=== PATIENT | male | born 1950 | race Caucasian/White ===

== ENCOUNTER 2025-10-26 09:54 | Emergency (ER) | payer MEDICARE, BC, SELFPAY ==
--- OUTSIDE RECORDS SUMMARY | 2025-10-22 13:00 | XMS_ITS | Encounter Summary ---
Author Organization [facility] s [facility] Address [id number] [address] [place] [address] Care Team Providers Care Credit Intern Name Role Phone Lazaro Blank MD Primary Care Provider [phone] Reason for Visit * ReasonCommentsFollow-up3 month f/u right shoulder cortisone injection last injection done 07-18-25 Encounter Details DateTypeDepartmentCare Team (Latest Contact Info)Fluqhtsuxos71/15/2025 1:00 PM ESTOffice Visit [facility] [address] [facility] [address] [place] [address] Glen Turner Jr., MD [address], [facility] [address] [place] [address] Rotator cuff arthropathy of right shoulder (Primary Dx) Social History Tobacco UseTypesPacks/DayYears UsedDateSmoking Tobacco: NeverSmokeless Tobacco: NeverAlcohol UseStandard Drinks/WeekCommentsYes0 (1 standard drink = 0.6 oz pure alcohol)AUDIT-CAnswerDate RecordedQ1: How often do you have a drink containing alcohol?2-3 times a week10/22/2025Q2: How many drinks containing alcohol do you have on a typical day when you are drinking?1 or Q3: How often do you have six or more drinks on one occasion?Never10/22/2025Hunger ScreeningAnswer Date RecordedWithin the past 12 months we worried whether our food would run out before we got money to buy more.Never True10/22/2025Within the past 12 months the food we bought just didn't last and we didn't have money to get more.Never True10/22/2025Sex and Gender InformationValueDate RecordedSex Assigned at Not on fileLegal DpnFztr3906/30/2023 8:38 AM EDTGender IdentityNot on fileSexual OrientationNot on filedocumented as of this encounter Last Filed Vital Signs Vital SignReadingTime TakenCommentsBlood Pressure--Pulse--Temperature-- Respiratory Rate--Oxygen Saturation--Inhaled Oxygen Concentration--Sfcxmz888.7 kg (264 lb)10/22/2025 12:56 PM JDMNbediy248.9 cm (6' 0.01 )10/22/2025 12:56 PM ESTBody Mass Index35.8112/23/2024 12:56 PM ESTdocumented in this encounter Functional Status * HeightAnswerDate of LerlubhtncUimmyo77.1336110/22/2025 12:56 PM Francesca Nicholas CMA * WeightAnswerDate of SypjokpleoVqcldh885941/15/2025 12:56 PM Francesca Nicholas CMA * Food InsecurityQuestionAnswerDate of AssessmentAuthorWithin the past 12 months the food we bought just didn't last and we didn't have money to get more.Never True10/22/2025 12:58 PM Francesca Nicholas CMAWithin the past 12 months we worried whether our food would run out before we got money to buy more.Never True10/22/2025 12:58 PM Francesca Nicholas CMA * BEE (kcal)AnswerDate of NmfssqmsgmYjhudk055746/15/2025 12:56 PM Francesca Nicholas CMA * BSA (Calculated - sq m)AnswerDate of AssessmentAuthor2.4710/22/2025 12:56 PM Francesca Nicholas CMA * BMI (Calculated)AnswerDate of LadinymtytRbpupw76.8112/23/2024 12:56 PM Francesca Nicholas CMA * AUDIT-C ScoreAnswerDate of GqkfqhskfwTflhfn328/15/2025 12:59 PM Francesca Nicholas CMA * Alcohol UseQuestionAnswerDate of AssessmentAuthorQ1: How often do you have a drink containing alcohol?2-3 times a week10/22/2025 12:59 PM Francesca Nicholas CMAQ2: How many drinks containing alcohol do you have on a typical day when you are drinking?1 or 12:59 PM Francesca Nicholas CMAQ3: How often do you have six or more drinks on one occasion?Never10/22/2025 12:59 PM Francesca Nicholas CMA * Weight in (lb) to have BMI = 25AnswerDate of MnjrulqggxSmztmd13469/15/2025 12:56 PM Francesca Nicholas CMA * HeightAnswerDate of RwjljlosbeHkizws92.3177610/22/2025 12:56 PM Francesca Nicholas CMA * WeightAnswerDate of ZxyakytprjYmtiuk177134/15/2025 12:56 PM Francesca Nicholas CMA * BEE (kcal)AnswerDate of ZckojwrlsvGomojs993577/15/2025 12:56 PM Francesca Nicholas CMA * BSA (Calculated - sq m)AnswerDate of AssessmentAuthor2.4710/22/2025 12:56 PM Francesca Nicholas CMA * BMI (Calculated)AnswerDate of QpfaoeyfsrKdejif52.8112/23/2024 12:56 PM Francesca Nicholas CMA * Weight in (lb) to have BMI = 25AnswerDate of IdspfxjnosZqbuul67727/15/2025 12:56 PM Francesca Nicholas CMA documented as of this encounter Progress Notes * Glen Turner Jr., MD - 10/22/2025 1:00 PM ESTAssociated Order(s): $ Large Joint Injection: shoulder, R subacromial bursa Post-Procedure Diagnose(s): Rotator cuff arthropathy of right shoulder [facility] [address] [address] Name: Robert Morales : 1950 Chief Complaint Patient presents with Right Shoulder - Follow-up 3 month f/u right shoulder cortisone injection last injection done 07-18-25 Robert Morales is a 75 y.o. year old male who presents to the office today for three-month evaluationof right shoulder. Patient has known rotator cuff arthropathy of the right shoulder. He has done well with intermittent injections. His most recent injection was given on 07/18/2025; he reports he had relief for about 2-1/2 months. Patient is interested in repeating another corticosteroid injectionof his right shoulder. He reports he continues to have relief from his previous injection of his right knee. Right shoulder: Patient has had longstanding pain of his right shoulder for the last few years. He reports pain mainly over the lateral aspect of the shoulder with occasional clicking and popping. Denies numbness or tingling. His symptoms worsened with overhead movement and sleeping on his side at night. He does have difficulties putting on a jacket or shirts. He denies any recent falls or injuries to his shoulder since last being seen. Treatment course thus far has included activity modification, RICE, icy hot, Tylenol, physician directed home exercises, glenohumeral and subacromial corticosteroid injections COMORBIDITIES that can adversely influence patient's outcome: Body mass index is 35.8 kg/m??. Tobacco Use: Low Risk (10/22/2025) Patient History Smoking Tobacco Use: Never Smokeless Tobacco Use: Never Passive Exposure: Not on file Recent Concern: Tobacco Use - Medium Risk (09/17/2025) Received from [facility] Patient History Smoking Tobacco Use: Former Smokeless Tobacco Use: Never Passive Exposure: Not on file No results found for: HGBA1C No results found for: EGFR Additional ROS as reviewed below: Constitutional: Negative for chills, diaphoresis and fever. Respiratory: Negative for shortness of breath. Cardiovascular: Negative for chest pain. Neurological: Negative for speech difficulty Psychiatric/Behavioral: Negative for agitation, behavioral problems and confusion. Previous office notes and diagnostic studies were reviewed prior to and during encounter. Past Medical, Family, Surgical, and Social History, as well as Medications, Allergies, and Review of Systems were reviewed and can be seen in the patient's chart. Objective Vitals: 10/22/25 1256 Weight: 119.7 kg (264 lb) Height: 182.9 cm (6' 0.01 ) Body mass index is 35.8 kg/m??. Robert is alert and oriented, and in no acute distress. Mood and affect are normal. No apparent issues with cervical ROM. No tenderness to palpation of midline of cervical spine. Right SHOULDER APPEARANCE: Skin is intact. No erythema, edema, ecchymosis, or deformity noted ATROPHY: None CREPITUS: Positive BICEPS DEFORMITY: None TENDERNESS: Subacromial bursa, infraspinatus, supraspinatus ROM: AROM (Right) Forward flexion 160 with pain AB 90 with pain ER with the arm at the side 50 IR lumbar spine Painful Arc (pain 60-120 degrees ABD): Positive STRENGTH: 4/5 supraspinatus. 5/5 external rotation. 5/5 subscapularis. The deltoid actively contracts. Speciality tests: Fraire: Positive Neers sign: Positive Jacqueline's: Positive Belly Press: Negative Drop Arm: Negative Cross-body adduction: Negative Yamhill's: Positive Speed: Positive Motor & sensation function intact in the axillary, median, ulnar, and radial nerve distributions. 2+ radial pulse Imaging X-ray shoulder right minimum 2 views Multiple views of the right shoulder show proximal migration of the humeral head with narrowing of the supraspinatus outlet no significant arthritic changes noted at the glenohumeral joint Assessment 1. Rotator cuff arthropathy of right shoulder - $ Large Joint Injection: shoulder, R subacromial bursa Plan: I examined and treated Robert Morales at this appointment today for rotator cuff arthropathy ofthe right shoulder. Physical exam findings were reviewed with patient. We discussed these issues along with possible treatment options. Conservative and surgical treatment options were discussed. Definitive treatment would be a reverse total shoulder arthroplasty however patient would like to continue with conservative treatment at this time. He has done well with corticosteroid injections in thepast and would like to proceed with another subacromial corticosteroid injection of the right shoulder. Patient was educated on injections including benefits, risks, side effects, and activity modification afterwards. Injection was given today without complication. Patient was encouraged to continue OTC analgesics and ice as needed. Continue with home exercises. Follow up in 3 months I encouraged Robert Morales to contact the office with any questions or concerns that arise at which point we could update the plan if necessary. Patient was told to notify the office if they develop any worsening or concerning symptoms. All questions were answered and patient verbalized understanding and is agreeable with the plan. This note was created with the assistance of a speech recognition program with the goal of generating a timely record of the patient encounter. Inadvertent computerized barrel raiser helper errors related to syntax, spelling, homophones, and/or inaudibility may be present. $ Large Joint Injection: shoulder, R subacromial bursa on 10/22/2025 1:03 PM Indications: pain Details: 22 G needle, posterior approach Medications: 80 mg methylPREDNISolone acetate 80 mg/mL; 20 mg lidocaine 10 mg/mL (1 %) Outcome: tolerated well, no immediate complications The patient was instructed to use ice, NSAIDs, or Tylenol for pain as needed. Patient was also educated on possibility for blood glucose elevation following the injection. The patient will call with any signs or concerns. Procedure, treatment alternatives, risks and benefits explained, specific risks discussed. Consent was given by the patient. Patient was prepped and draped in the usual sterile fashion. I, Glen Turner Jr, MD, personally performed the face to face evaluation on this patient. Idiscussed with the patient and confirmed the accuracy and completeness of the aforementioned history prepared by the advance practice provider, and I personally performed the clinical examination of the patient. I discussed the treatment plan with the patient and my physician's assistant project engineer. Details of today's visit are as described above. documented in this encounter Plan of Treatment DateTypeDepartmentCare Team (Latest Contact Info)Mpzvprjglgq29/16/2026 2:40 PM EDTOffice Visit [facility] [address] [place] [address] Glen Turner Jr., MD [address] [place] [address] documented as of this encounter Procedures Procedure NamePriorityDate/TimeAssociated DiagnosisCommentsPR ARTHROCENTESIS ASPIR&/INJ MAJOR JT/BURSA W/O TLEzfbilh81/15/2025 1:03 PM EST Rotator cuff arthropathy of right shoulder documented in this encounter Results * TN ARTHROCENTESIS ASPIR&/INJ MAJOR JT/BURSA W/O US (10/22/2025 1:03 PM EST) Narrative MANUALLY TRANSCRIBED RESULTS - 10/22/2025 1:03 PM EST Glen Turner Jr., MD 10/22/2025 1:38 PM $ Large Joint Injection: shoulder, R subacromial bursa on 10/22/2025 1:03 PM Indications: pain Details: 22 G needle, posterior approach Medications: 80 mg methylPREDNISolone acetate 80 mg/mL; 20 mg lidocaine 10 mg/mL (1 %) Outcome: tolerated well, no immediate complications The patient was instructed to use ice, NSAIDs, or Tylenol for pain as needed. Patient was also educated on possibility for blood glucose elevation following the injection. The patient will call with any signs or concerns. Procedure, treatment alternatives, risks and benefits explained, specific risks discussed. Consent was given by the patient. Patient was prepped and draped in the usual sterile fashion. I, Glen Turner Jr, MD, personally performed the face to face evaluation on this patient. I discussed with the patient and confirmed the accuracy and completeness of the aforementioned history prepared by the advance practice provider, and I personally performed the clinical examination of the patient. I discussed the treatment plan with the patient and my physician's assistant project engineer. ??Details of today's visit are as described above. Authorizing ProviderResult TypeResult StatusBenlisbeth Turner Jr., MD PROCEDURE/MINOR SURGICAL ORDERABLESFinal ResultPerforming OrganizationAddress City/State/ZIP CodePhone Number MANUALLY TRANSCRIBED RESULTS documented in this encounter Visit Diagnoses Diagnosis Rotator cuff arthropathy of right shoulder- Primary documented in this encounter Administered Medications Medication OrderMAR ActionAction DateDoseRateSite lidocaine (XYLOCAINE) 10 mg/mL (1 %) injection 20 mg 20 mg, intra-articular, One-Time Injection, Starting on Wed10/22/25 at 1303, For 1 dose Indications:Rotator cuff arthropathy of right sbxpneiiVfzjb76/15/2025 1:03 PM EST20 mg methylPREDNISolone acetate (DEPO-MEDROL) injection 80 mg 80 mg, intra-articular, One-Time Injection, Starting on Wed10/22/25 at 1303, For 1 dose Indications:Rotator cuff arthropathy of right tnzulxydBhxbr15/15/2025 1:03 PM EST80 mgdocumented in this encounter Care Teams Team MemberRelationshipSpecialtyStart DateEnd Date Lazaro Blank MD [address] [place] [address] PCP - GeneralFamily Medicine07/02/23documented as of this encounter
[2025-10-26 10:00] VITALS: O2SAT 79
[2025-10-26 10:04] VITALS: O2SAT 71
[2025-10-26 10:15] VITALS: O2SAT 91
[2025-10-26 10:42] VITALS: O2SAT 90
--- NOTE | 2025-10-26 11:44 | ED_ITS ---
HPI HPI - General Adult General Stated complaint: CARDIAC ARREST Time Seen by Provider: 10/26/25 11:11 History of Present Illness HPI narrative: The patient is a 75-year-old male with history of hypertension hyperlipidemia and BPH is brought to us by the EMS after his saw that she heard something fall on the floor and she found him in the floor the patient was awake when the EMS arrived there but he was restless. It was when he got to the EMS when he ar rested and the patient was started on CPR by the EMS where they gave him 3 rounds of epinephrine before his arrival. By the time the patient arrived with started CPR right away CPR continued in the PEA pulse with every 2 minutes we will check for the pulse and the patient will be given epinephrine every 3 to 5 minutes Patient also was provided with multiple rounds of bicarb Exam Narrative Exam Narrative: No signs of trauma The patient is intubated No bruises in the abdomen or the lower extremities or the upper extremity with the head There is good air entry with the intubation bilaterally Constitutional Vital Signs, click to edit/add: Last Vital Signs Resp 14 10/26/25 10:42 Pulse Ox 90 L 10/26/25 10:42 FiO2 100 10/26/25 10:42 Course Vital Signs Vital signs: Vital Signs Respiratory Rate 14 10/26/25 10:00 Pulse Oximetry 79 L 10/26/25 10:00 Fraction of Inspired Oxygen 100 10/26/25 10:00 Respiratory Rate 14 10/26/25 10:42 Pulse Oximetry 90 L 10/26/25 10:42 Fraction of Inspired Oxygen 100 10/26/25 10:42 Medical Decision Making [facility] Narrative Medical decision making narrative: Upon arrival initially the patient had the CPR continued we continued CPR for few rounds during which the patient is getting epinephrine every 3 to 5 minutes and every 2 minutes. For the pulse check, the patient was intubated on arrival It was at 1011 when the patient was found to have a pulse and he started fighting the tube, we did give him at that time fentanyl and Versed as well, and at that time the plan to start him on Levophed which we started because the blood pressure was low EKG at that time showed that the patient was in A-fib with a picture of possible ST elevation that was discussed with Dr. Mitchell on the phone, but according to Dr. Mitchell this could have been PE as well After discussion with the family at the bedside and at 10:04 It is at 1011 the patient arrested again At that time the patient was given TNKase after discussing the case with his family and explained that right now with his care is futile and thus we try to help if there is any PE causing him to be hypotensive and a resting Patient was given TNKase according to the pharmacy recommended dose CPR continues during that time Multiple episode of CPR and multiple episodes of bicarb blood sugar was above 112 The patient at 1056 was pronounced I did speak with the primary care doctor BJ and his phone number was [phone] And I also spoke with the silk washing machine operator and she cleared the body and if not a silk washing machine operator case as long of the life will decide on the home Discharge Plan Discharge Patient Disposition: Date/Time: 10/26/25 10:56 Probable Cause of Probable Cause of : Cardiac arrest
--- NOTE | 2025-10-26 11:53 | PC.NURSE ---
see code blue paperwork
--- NOTE | 2025-10-26 12:08 | PC.NURSE ---
magnetic tape typewriter operator spoke with [facility] [place]
--- OUTSIDE RECORDS SUMMARY | 2025-10-26 12:23 | XMS_ITS | Clinical Summary ---
Author Organization [facility] Address [address] [place] [address] Care Team Providers Care Legal Stenographer Name Role Phone Lazaro Blank MD Primary Care Provider [phone] Lazaro Blank MD Unavailable Roxi Rosario LPN Unavailable Allergies No known active allergies Medications MedicationSigDispense QuantityRefillsLast FilledStart DateEnd DateStatus senna-docusate (Vee-Colace) 8.6-50 MG tablet Take 1 tablet by mouth in the morning.Active tamsulosin (Flomax) 0.4 MG 24 hr capsule Take 0.4 mg by mouth in the morning. 2 capsules at bedtime.Active Naproxen Sodium (Aleve) 220 MG capsule Take 1 tablet by mouth every 12 (twelve) hours if needed.Active glucose blood (GNP [place]etrack Test Strips) test strip 1 each by Other route if needed. Use as instructedActive atorvastatin (Lipitor) 20 MG tablet Take 20 mg by mouth in the morning. 1/2 tablet daily.Active BABY ASPIRIN PO Take by mouth. dailyActive allopurinol (Zyloprim) 300 MG tablet Take 300 mg by mouth in the morning.Active diphenhydrAMINE (Benadryl Allergy) 25 MG tablet Take 1 tablet by mouth every 8 (eight) hours if needed for allergies or sleep. Active albuterol HFA (ProAir HFA) 90 mcg/act inhaler Indications:Moderate persistent asthma without status asthmaticus without complication (HCC)Inhale 2 puffs every 4 (four) hours if needed for wheezing 18 g 1112/19/2023Active lisinopril 20 MG tablet Indications:Essential (primary) hypertensionTake 1 tablet (20 mg) by mouth Daily 100 tablet 5Active semaglutide (Ozempic) 4 MG/3ML solution pen-injector Indications:Type 2 diabetes mellitus with diabetic polyneuropathy, without long- term current use of insulin (HCC)Inject 1 mg under the skin 1 (one) time per week 12 mL 5Active cetirizine (ZyrTEC) 10 MG tablet Take 10 mg by mouth at bedtimeActive furosemide (Lasix) 20 MG tablet Indications:Essential (primary) hypertensionTAKE 1 TABLET BY MOUTH DAILY 90 tablet 5Active Active Problems ProblemNoted DateDiagnosed DatePhysical kebtdnhpxxkddz84/14/2025ody mass index (BMI) 36.0-36.9, adult02/19/2025 Assessment & Plan (02/19/2025 2:56 PM EDT): 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) use of xzrbzuq1302/19/2025Routine general medical examination at health care cwhvoqpx14/14/2025 Assessment & Plan (02/19/2025 2:54 PM EDT): Colonoscopy every 10 years or Cologuard every 3 years ages 50-75 Flu Vaccine yearly Pneumovax and Prevnar Mammo yearly for women and PSA yearly for men Labs/Screening yearly to rule out Diabetes, Chronic Kidney disease and liver disease Hepatitis Screen forat risk populations Shingles vaccine after65 if indicated Tetanus Vaccine every 10 years Lipids yearly under the age of 75 If Smoking history: one time CT scan of chest and Ultrasound of Aorta to screen for Anuerysm Neurogenic jkcgmzmoccys64/14/2025 Assessment & Plan (02/19/2025 2:59 PM EDT): stretching Type 2 diabetes mellitus with diabetic neuropathy, azfmsxdwwyy18/07/2025 Assessment & Plan (03/22/2025 2:58 PM EDT): No Tobacco use Follow ADA 1800 diet low carbohydrate Continue Med Compliance Goal LDL less than 100Goal BP 130/80 Goal HgbA1c < 7.0% Monitor Feet, monitor for infection Needs Exercise Yearly eye exams Prior to your visit today we reviewed your chart and outlined testing and treatment needed foryour care. Reviewed poissble complications of diabetes including, loss of vision, kidney failure and increased risk of heart attacks and stroke. We made recommendations on how to control your blood sugars, and minimize your risk of these complications. We discussed your current barriers to a healthy living and importance of healthy diet and exercise. Assessment & Plan (02/19/2025 2:53 PM EDT): Check more frequently Exposure to potentially hazardous vnzxpeyep68/07/2025Ingrowing uonlqen9502/12/2025 Lower urinary tract symptoms due to benign prostatic aaksjqgkzck20/07/2025 Onychomycosis of akubivc2602/12/2025Type 2 diabetes mellitus with diabetic pbmmgmazkcdpfh65/07/2025 Assessment & Plan (05/17/2025 1:23 PM EDT): No Tobacco use Follow ADA 1800 diet low carbohydrate Continue Med Compliance Goal LDL less than 100Goal BP 130/80 Goal HgbA1c < 7.0% Monitor Feet, monitor for infection Needs Exercise Yearly eye exams Prior to your visit today we reviewed your chart and outlined testing and treatment needed foryour care. Reviewed poissble complications of diabetes including, loss of vision, kidney failure and increased risk of heart attacks and stroke. We made recommendations on how to control your blood sugars, and minimize your risk of these complications. We discussed your current barriers to a healthy living and importance of healthy diet and exercise. Assessment & Plan (02/19/2025 2:53 PM EDT): No Tobacco use Follow ADA 1800 diet low carbohydrate Continue Med Compliance Goal LDL less than 100Goal BP 130/80 Goal HgbA1c < 7.0% Monitor Feet, monitor for infection Needs Exercise Yearly eye exams Prior to your visit today we reviewed your chart and outlined testing and treatment needed foryour care. Reviewed poissble complications of diabetes including, loss of vision, kidney failure and increased risk of heart attacks and stroke. We made recommendations on how to control your blood sugars, and minimize your risk of these complications. We discussed your current barriers to a healthy living and importance of healthy diet and exercise. Asthma without status vhrnjnorukp83/13/2023Essential (primary) hypertension 04/20/2023PH (benign prostatic hyperplasia)04/20/2023hronic gafzied5204/20/2023 Class 2 bvlbraq5304/20/2023eneralized osteoarthritis of multiple sites04/20/2023 Fuslurolbhvnqpkulvpi27/13/2023Lichen gztxhs0304/20/2023Morbid (severe) obesity due to excess eurctyio21/13/2023 Assessment & Plan (02/19/2025 2:53 PM EDT): Weight loss Obstructive sleep apnea04/20/20235666Bwrrfmgyy02/13/2023Type 2 diabetes mellitus without bbafpfdasrdka65/13/2023 Assessment & Plan (09/17/2025 1:22 PM EST): No Tobacco use Follow ADA 1800 diet low carbohydrate Continue Med Compliance Goal LDL less than 100Goal BP 130/80 Goal HgbA1c < 7.0% Monitor Feet, monitor for infection Needs Exercise Yearly eye exams Prior to your visit today we reviewed your chart and outlined testing and treatment needed foryour care. Reviewed poissble complications of diabetes including, loss of vision, kidney failure and increased risk of heart attacks and stroke. We made recommendations on how to control your blood sugars, and minimize your risk of these complications. We discussed your current barriers to a healthy living and importance of healthy diet and exercise. Sees Podiatry this week Optometry next Wednesday Decreased estrogen level08/22/2018Lipoprotein deficiency aclxrefi34/05/2016 Allergic wevxhqdc96/22/2016 Resolved Problems ProblemNoted DateDiagnosed DateResolved CeizRtnh48/Low HDL (under 40)ure fbzvfixbdyazdudeibpc89/13/202306/14/2023 Encounters DateTypeDepartmentCare HevoNjxwtgofiau41/10/2025 1:00 PM ESTOffice Visit [facility] [address] [place] [address] Lazaro Blank MD Type 2 diabetes mellitus without complication, with long-term current use of insulin (HCC) (PrimaryDx)09/17/20250109Lsluuz04/09/7856Geuykx67/03/2025Telephone [facility] [address] [place] [address] Roxi Rosario LPN 08/28/2025Patient Outreach [facility] [address] [place] [address] Roxi Rosario LPN 08/20/2025Refill [facility] [address] [facility] [address] [place] [address] Lazaro Blank MD Essential (primary) hypertensionfrom Last 3 Months Immunizations ImmunizationAdministration DatesNext DueInfluenza, High Dose Seasonal, Preservative Free08/06/2020,08/22/2019,09/15/2017Influenza, High-dose Seasonal, Quadrivalent, Preservative Free08/10/2022,08/08/2018Influenza, Seasonal, Quadrivalent, Pixxlnhudg53/30/2021Influenza, injectable, quadrivalent, preservative free08/25/2016,09/17/2015Influenza, seasonal, gwkyorwmwq34/26/2023 Influenza, seasonal, injectable, preservative free07/31/2013Influenza, seasonal, intradermal, preservative free08/08/2015Pfizer Bivalent Booster 12 Years And Older09/03/2022neumococcal Conjugate PCV 13003/02/2017Pneumococcal Polysaccharide YPLC114111/14/2018Zoster, live01/07/2016,12/10/2015,08/08/2015 Family History Medical HistoryRelationNameCommentsHeart diseaseFatherJoseph BashHypertension FatherJoseph BashStrokeMotherGladys BashMelanomaNeg HxRelationNameStatusComments FatherJoseph BashDeceasedMotherGladys BashDeceased Social History Tobacco UseTypesPacks/DayYears UsedDateSmoking Tobacco: UezldfAlqrbkpahg34 Smokeless Tobacco: Never Tobacco Cessation:Counseling Given: Not Answered Alcohol UseStandard Drinks/WeekCommentsYes3 (1 standard drink = 0.6 oz pure alcohol)Social aicfxprS5594 Health LiteracyAnswerDate RecordedHow often do you need to have someone help you when you read instructions, pamphlets, or other written material from your doctor or pharmacy?Psoifgslr54/09/2025Social Connection and Isolation PanelAnswerDate RecordedIn a typical week, how many times do you talk on the phone with family, friends, or neighbors?Twice a week 02/14/2025How often do you get together with friends or relatives?Three times a week02/14/2025ttends Nondenominational ServicesNot on file02/14/2025Do you belong to any clubs or organizations such as yazidism groups, unions, fraternal or athletic groups, or school groups?Yes02/14/2025How often do you attend meetings of the clubs or organizations you belong to?Never02/14/2025re you , , , , never , or living with a partner?Hjbofsi1602/14/2025 AUDIT-CAnswerDate RecordedQ1: How often do you have a drink containing alcohol? 2-3 times a week02/14/2025Q2: How many drinks containing alcohol do you have on a typical day when you are drinking?1 or Q3: How often do you have six or more drinks on one occasion?Never02/14/2025Overall Financial Resource Strain (CARDIA)AnswerDate RecordedHow hard is it for you to pay for the very basics like food, housing, medical care, and heating?Not hard at all02/14/2025 PHQ-2AnswerDate RecordedPatient Health Questionnaire-2 Nnvgo83111/17/2024[facility] [place] - Occupational Stress QuestionnaireAnswerDate RecordedDo you feel stress - tense, restless, nervous, or anxious, or unable to sleep at night because yourmind is troubled all the time - these days?Not at all 02/14/2025Exercise Vital SignAnswerDate RecordedOn average, how many days per week do you engage in moderate to strenuous exercise (like a brisk walk)?0 days 02/14/2025Minutes of Exercise per SessionNot on file02/14/2025Hunger Vital Sign AnswerDate RecordedWithin the past 12 months, you worried that your food would run out before you got the money to buymore.Never true02/14/2025Within the past 12 months, the food you bought just didn't last and you didn't have money to get more.Never true02/14/2025PRAPARE - TransportationAnswerDate RecordedIn the past 12 months, has lack of transportation kept you from medical appointments or from getting medications?No02/14/2025In the past 12 months, has lack of transportation kept you from meetings, work, or from getting things needed for daily living?No02/14/2025Housing Stability Vital SignAnswerDate RecordedIn the last 12 months, was there a time when you were not able to pay the mortgage or rent on time?No02/14/2025In the past 12 months, how many times have you moved where you were living?t any time in the past 12 months, were you homeless or living in a fdc (including now)?No02/14/2025Sex and Gender InformationValueDate RecordedSex Assigned at BirthNot on fileLegal SexMale 01/20/2023 6:54 PM EDTGender IdentityNot on fileSexual OrientationNot on file Last Filed Vital Signs Vital SignReadingTime TakenCommentsBlood Cimhtyyq855/6211 1:07 PM EST Raubv226609/17/2025 1:07 PM YYVUneqwkdzmrl46.2 ??C (98.9 ??F)10/26/2023 8:28 AM ESTRespiratory Pjkj423304/21/2023 9:01 AM EDTOxygen Hboogxbxqy57%09/17/2025 1:07 PM ESTInhaled Oxygen Concentration--Stzrky545 kg (259 lb)09/17/2025 1:07 PM EST Wlqczo979.9 cm (6')09/17/2025 1:07 PM ESTBody Mass Index35.13111/17/2024 1:07 PM EST Plan of Treatment Health MaintenanceDue DateLast DoneCommentsDiabetes: Retinopathy Screening , 03/21/2019COVID-19 Vaccine ( season)2025 09/03/2022, 05/26/2022, 09/09/2021, Additional history existsDiabetes: Hemoglobin A1C/08/2025, 02/14/2025, 10/26/2023, Additional history existsDiabetes: Urine Protein Hyfyockek91/15/04109305/22/2025, 04/20/2022, 04/09/2021, Additional history existsPneumococcal Vaccine: 65+ YearsCompleted 09/14/2019, 03/02/20171287TafxrszevbtIiblswkqqxsq44/24/2023, 07/01/2023, 07/01/2023, Additional history existsColorectal Cancer ScreeningDiscontinuedInfluenza PqlbsvuMcxpspwuu25/13/2025, 08/03/2023, 08/10/2022, Additional history existsCT ColonographyDiscontinuedFIT-DNADiscontinuedFITDiscontinuedFOBTDiscontinued SigmoidoscopyDiscontinued Procedures Procedure NamePriorityDate/TimeAssociated DiagnosisCommentsPOCT GLYCATED HEMOGLOBIN, MSVSTOsxuqpw49/10/2025 1:23 PM EDT Type 2 diabetes mellitus with diabetic polyneuropathy, without long-term current use of insulin (HCC) COLONOSCOPY XWNVVXHFYHJfikpoa95/24/2023 COLOR FUNDUS PHOTOGRAPHY - OU - BOTH VXANRuqpybo87/23/2022 12:00 PM EST MICROALBUMIN / CREATININE URINE BBINHIlrcgth12/13/2022 from Last 3 Months or Most Recently Relevant to Health Maintenance Results * POCT Glycated hemoglobin, total (05/17/2025 1:23 PM EDT)ComponentValueRef RangeTest MethodAnalysis TimePerformed AtPathologist SignatureHemoglobin A1C 6.1Specimen (Source)Anatomical Location / LateralityCollection Method / Volume Collection TimeReceived KhwxCmomt76/10/2025 1:23 PM EDT Narrative Authorizing ProviderResult TypeResult StatusLazaro Blank MDPOINT OF CARE TEST ENTER/EDIT ORDERABLESFinal Result * COLONOSCOPY DIAGNOSTIC (07/01/2023)Anatomical RegionLateralityModality Radiographic ImagingSpecimen (Source)Anatomical Location / Laterality Collection Method / VolumeCollection TimeReceived Time07/01/2023 Narrative 07/01/2023 11:55 AM EDT normal Authorizing ProviderResult TypeResult StatusLazaro WRIGHTG XR PROCEDURES Edited Result - Final * Color Fundus Photography - OU - Both Eyes (09/30/2022 12:00 PM EST)Anatomical RegionLateralityModalityHeadFundus PhotographySpecimen (Source)Anatomical Location / LateralityCollection Method / VolumeCollection TimeReceived Time 09/30/2022 12:00 PM EST Narrative 09/30/2022 12:00 PM EST PERFORMED AT [facility] LOCATION:[id number] No diabetic retinopathy Procedure Note CONVERSION, GENERIC - 03/24/2023 PERFORMED AT [facility] LOCATION:[id number] No diabetic retinopathy Authorizing ProviderResult TypeResult StatusLazaro Blank MDOPHTH PHOTOGRAPHY Final Result * (ABNORMAL) Microalbumin / creatinine urine ratio (04/20/2022)ComponentValueRef RangeTest MethodAnalysis TimePerformed AtPathologist LrauuqyiuRSAGF41529 - 259 [facility] LABMALB<1.2(L)[facility] EXTER[facility] LABComment: Unable to calculate mALB/Crea ratio, mALB is <1.2 mg/dL mALB reference range not established. Specimen (Source)Anatomical Location / LateralityCollection Method / Volume Collection TimeReceived Time04/20/2022 Narrative Authorizing ProviderResult TypeResult Ирина BAUMANN URINE ORDERABLES Final ResultPerforming OrganizationAddressCity/State/ZIP CodePhone Number [facility] from Last 3 Months or Most Recently Relevant to Health Maintenance Insurance Care Teams Team MemberRelationshipSpecialtyStart DateEnd Lazaro Blank MD [address] [place] [address] PCP - GeneralFamily Medicine04/06/23 Lazaro Blank MD [address] [facility] [address] [place] [address] PCP - ACO [facility]03/08/24 Roxi Rosario LPN [address] [facility] [address] [place] [address] 06/13/25
--- OUTSIDE RECORDS SUMMARY | 2025-10-26 12:24 | XMS_ITS | Patient Health Record ---
Author Organization [facility] in [place] Address [address] [place] [address] Care Team Providers Care [place] Attorney Name Role Phone Lazaro Blank MD Primary Care Provider Unavailabl e Reason For Referral No Information Medications Medication SIG (Take, Route, Frequency, Duration) Notes Start Date End Date Status Atorvastatin Calcium ActiveAspirinActiveDiphendrylActiveCephalexinActiveAllopurinolActiveAlogliptin BenzoateActiveTamsulosin HClActivehydroCHLOROthiazideActive Social History Tobacco Use: Social History Observation Description Date Details (start date - stop date) Former Smoker NA - NA Tobacco Use/Smoking Question Answer Notes Patient is a former smoker Plan Of Treatment No Information Insurance Providers Payer Name Payer Address Payer Phone Subscriber Number Group Number Insured Name Patient Relationship to Insured Coverage Start Date Coverage End Date [place]IC[place] [address] [place] [address] [id number] Yasmine Moraleself - patient is the [id number] MEDICARE SUPPLEMENTPO [address] [place] [id number], Kenneth Self - patient is the [id number] 2016 Medications Administered Medication Instructions Date of Administration Dosage Notes Depo-Medrol, 40 mg/mL mLDepo-Medrol, 40 mg/mL mLDepo-Medrol, 40 mg/mL12/06/2019 2 mLDepo-Medrol, 40 mg/mL mLDepo-Medrol, 40 mg/mL mL Medical (General) History Surgical History Surgery Date(Month/Year)
--- OUTSIDE RECORDS SUMMARY | 2025-10-26 12:24 | XMS_ITS | Encounter Summary ---
Author Organization [facility] s tem Address [id number] [address] [place] [address] Care Team Providers Care Greens Keeper Name Role Phone Lazaro Blank MD Primary Care Provider [phone] Encounter Details DateTypeDepartmentCare Team (Latest Contact Info)Irnsyffvuuy06/15/2025Travel Social History Tobacco UseTypesPacks/DayYears UsedDateSmoking Tobacco: NeverSmokeless [...] InformationValueDate RecordedSex Assigned at Not on fileLegal MlzRnai7806/30/2023 8:38 AM EDTGender IdentityNot on fileSexual OrientationNot on filedocumented as of this encounter Plan of Treatment DateTypeDepartmentCare Team (Latest Contact Info)Yoilrfwzvhu35/16/2026 2:40 PM EDTOffice Visit [facility] [address] [facility] [address] [place] [address] Glen Turner Jr., MD [address] [facility] , [facility] [address] [place] [address] documented as of this encounter Visit Diagnoses Not on filedocumented in this encounter Care Teams Team MemberRelationshipSpecialtyStart DateEnd Date Lazaro Blank MD [address] [place] [address] PCP - GeneralFamily Medicine07/02/23documented as of this encounter
--- OUTSIDE RECORDS SUMMARY | 2025-10-26 12:24 | XMS_ITS | Clinical Summary ---
Author Organization [facility] Address [id number] [address] [place] [address] Care Team Providers Care Commissioned Security Officer Name Role Phone Lazaro Blank MD Primary Care Provider [phone] Allergies No known active allergies Medications MedicationSigDispense QuantityRefillsLast FilledStart DateEnd DateStatus ALLOPURINOL ORAL Take 300 mg by mouth Daily at 0630.Active alogliptin benzoate (ALOGLIPTIN ORAL) Take by mouth.Active ASPIRIN ORAL Take by mouth.Active atorvastatin calcium (ATORVASTATIN ORAL) Take 20 mg by mouth Daily at 0630.Active diphenhydramine HCl (BENADRYL ORAL) Take by mouth.Active HYDROCHLOROTHIAZIDE ORAL Take by mouth.Active tamsulosin HCl (TAMSULOSIN ORAL) Take by mouth.Active methylPREDNISolone (MEDROL, LEIGHA,) 4 mg tablet follow package directions 21 tablet 3Active Additional Information Patient not taking.Reported on 10/22/2025 semaglutide 0.25 mg or 0.5 mg(2 mg/1.5 mL) pen injector Inject 0.25 mg under the skin.5Active CEPHalexin (KEFLEX) 500 mg capsule Take 1 capsule (500 mg total) by mouth as needed.Active cetirizine (ZyrTEC) 10 mg tablet Take 1 tablet (10 mg total) by mouth once daily at bedtime. TAKE 10 MG BY MOUTH AT BEDTIMEActive furosemide (LASIX) 20 mg tablet Take 1 tablet (20 mg total) by mouth daily.5Active Active Problems No known active problems Encounters DateTypeDepartmentCare BxheSqqiokvajfa30/15/2025 1:00 PM ESTOffice Visit [facility] [address] [place] [address] Glen Turner Jr., MD Rotator cuff arthropathy of right shoulder (Primary Dx)10/22/2025Travelfrom Last 3 Months Family History Medical HistoryRelationNameCommentsHeart diseaseFatherHeart diseaseMother RelationNameStatusCommentsFatherDeceasedMotherDeceased Social History Tobacco UseTypesPacks/DayYears UsedDateSmoking Tobacco: NeverSmokeless Tobacco: Never Tobacco Cessation:Counseling Given: Not Answered Alcohol UseStandard Drinks/WeekCommentsYes0 (1 standard drink = 0.6 [...] InformationValueDate RecordedSex Assigned at Not on fileLegal YwtYuwj2806/30/2023 8:38 AM EDTGender IdentityNot on fileSexual OrientationNot on file Last Filed Vital Signs Vital SignReadingTime TakenCommentsBlood Pressure--Pulse--Temperature-- Respiratory Rate--Oxygen Saturation--Inhaled Oxygen Concentration--Ioezuu430.7 kg (264 lb)10/22/2025 12:56 PM FZGGruljb814.9 cm (6' 0.01 )10/22/2025 12:56 PM ESTBody Mass Index35.8112/23/2024 12:56 PM EST Plan of Treatment DateTypeDepartmentCare Team (Latest Contact Info)Toahcahqtxf02/16/2026 2:40 PM EDTOffice Visit [facility] [address] [facility] [address] [place] [address] Glen Turner Jr., MD [address] [facility] [address] [place] [address] Health MaintenanceDue DateLast DoneCommentsDepression Drkhzqviv31/16/1963Adult BMI Follow Up Plan1969Fall Risk Szuheitod34/16/2016COVID-19 Vaccine ( season), 05/26/2022, 09/09/2021, Additional history existsAdult BMI Vdwabfjmi83Tobacco Ayfzcuqgu41/15/2026 10/22/2025DTaP,Tdap and Td Vaccines (2 - Td or Tdap)Zoster (Shingles) RabwmbwKkdnvrjeo91/01/2019, 09/16/2018, 01/07/2016, Additional history existsRSV ( or age 60+ yrs)Zbfxaoixh12/14/2025Influenza Vaccine Iokcccgek85/13/2025, 09/07/2024, 08/03/2023, Additional history exists Medical Devices Not on file Procedures Procedure NamePriorityDate/TimeAssociated DiagnosisCommentsPR ARTHROCENTESIS ASPIR&/INJ MAJOR JT/BURSA W/O RBHqcljhw61/15/2025 1:03 PM EST Rotator cuff arthropathy of right shoulder from Last 3 Months Results * [place] ARTHROCENTESIS ASPIR&/INJ MAJOR JT/BURSA W/O US (10/22/2025 [...] of the aforementioned history prepared by the [facility] provider, and I personally performed the clinical examination of the patient. I discussed the treatment plan with the patient and my physician's assistant merchandise manager. ??Details of today's visit are as described above. Authorizing ProviderResult TypeResult StatusBenlisbeth Turner Jr., MD PROCEDURE/MINOR SURGICAL ORDERABLESFinal ResultPerforming OrganizationAddress City/State/ZIP CodePhone Number MANUALLY TRANSCRIBED RESULTS from Last 3 Months Insurance Care Teams Team MemberRelationshipSpecialtyStart DateEnd Date Lazaro Blank MD [address] [place] [address] PCP - GeneralFamily Medicine07/02/23
--- NOTE | 2025-10-26 13:00 | PC.NURSE ---
pts family refused SOLVIITA
--- NOTE | 2025-10-26 13:02 | ECG_ITS ---
[facility] Test Date: 2025-10-26 Pat Name: RD ANTHONY Department: Room: - Gender: Male Rehabilitation Worker: : 1950 Requested By: MICHAEL LORENZO Order Number: [id number] Reading MD: ROBYN JENNINGS M.D. Measurements Intervals [place] Rate: 142 P: -41674 [place]: -92469 QRS: -5 QRSD: 78 T: -3 QT: 314 QTc: 396 Interpretive Statements 65370 Atrial fibrillation with rapid ventricular response with aberrant conduction, or ventricular premature complexes 3114 Cannot rule out anterior myocardial infarction, age undetermined 3633 Inferior myocardial infarction, probably old [address] depression, possible subendocardial injury or digitalis effect 8102 Low QRS voltage in chest leads 9150 abnormal ECG No prior ECG available for comparison Electronically Signed On 10-26-2025 18:49:23 EST by ROBYN JENNINGS M.D.
--- NOTE | 2025-10-26 13:02 | ECG_ITS ---
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 Measurements Intervals [place] Rate: 137 P: -22172 SC: -11733 QRS: 1 QRSD: 84 T: 10 QT: 334 QTc: 414 Interpretive Statements Atrial fibrillation with rapid ventricular response 3114 Cannot rule out anterior myocardial infarction, age undetermined 3623 Possible inferior myocardial infarction, probably old [address] depression, possible subendocardial injury or digitalis effect 4436 Possible septal injury or acute infarct 8102 Low QRS voltage in chest leads 9150 abnormal ECG Compared to ECG 10/26/2025 10:16:47 No significant changes Electronically Signed On 10-26-2025 18:49:46 EST by ROBYN JENNINGS M.D.
--- NOTE | 2025-10-26 13:35 | PC.NURSE ---
pt was picked up from [facility]
== END 2025-10-26 13:37 | disposition expired ==
PROVIDERS: Emergency Provider Emergency Medicine; PCP Family Medicine
DX: I46.9 Cardiac arrest, cause unspecified (principal); I10 Essential (primary) hypertension; E78.5 Hyperlipidemia, unspecified; N40.0 Benign prostatic hyperplasia without lower urinary tract symptoms
CPT/HCPCS: 92950; 93005; 94002; 99291; J0169; J2250; J3010; J3101